=== PATIENT | female | born 1985 | race Asian ===

== ENCOUNTER 2021-12-15 05:35 | Inpatient (IN) ==
--- NOTE | 2021-12-06 10:34 | Anesthesiology Consultation ---
Date of Service December 06, 2021 Assessment & Plan (1) Encounter for pre-operative examination: COVID screening: Per assessment on 12/06: No known COVID-19 positive contacts or current COVID-19 related symptoms. Travel screen negative. Patient vaccinated. 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 History Surgery Operation Date: 12/15/21 07:30 Proposed Procedures p Section (Delivery of Baby Through Abdominal Incision) - Pilar Monaco MD, FACOG Height/Weight Height: 5 ft 6 in Weight: 86.183 kg Allergies Allergy/AdvReac Type Severity Reaction Status Date / Time No Known Allergies Allergy Verified 12/06/21 09:55 Medications Home Medications Medication Instructions Recorded Confirmed Last Taken folic acid 0.8 mg capsule 0.8 mg PO DAILY 12/06/21 12/06/21 Unknown vit no.95-ferrous 1 tab PO DAILY 12/06/21 12/06/21 Unknown fumarate 28 mg-folic acid 800 mcg tablet ( Multivitamins) Past Medical History Medical History Endometriosis History of anemia History of COVID-19 07/2021 > symptoms resolved History of uterine fibroid Past Family History Family History Mother Diabetes Hypertension Other No family history of adverse response to anesthesia Denies family history of Ovarian cancer Prostate cancer Bipolar disorder Breast cancer Lung cancer Cancer Past Surgical History Surgical History H/O myomectomy [place] teeth extracted Social History Smoking Status: Never smoker Hx Alcohol Use: No Hx Substance Use: No substance use type: does not use
--- NOTE | 2021-12-14 17:07 | History & Physical Report ---
Date of Service December 14, 2021 Assessment & Plan (1) 38 weeks gestation of : (2) History of myomectomy: Plan Given her history myomectomy, planned c/s and planned for 38thwk to avoid any chance of labor. Patient aware and agrees. Admit on 12/15/21 for planned c/s. Risks, alt and complications reviewed. Consent reviewed and signed. History of Present Illness Chief Complaint: planned c/s Primary Care Provider: [facility] 36yo [id number] for planned primary c/s for uterine myomectomies x multiple. Patient had hysteroscopic and laparoscopic myomectomies in [place], at least 6 removed laparoscopically. She states recommendation in [place] was c/s for future . She denies rom, vb. +FM. No ctx. PNC c/b 1. prior myomectomy x multiple PNL rh pos, ri, gbs neg OBH: g1 GYNH: nl paps Allergies Allergy/AdvReac Type Severity Reaction Status Date / Time No Known Allergies Allergy Verified 12/14/21 14:13 Home Medications Medication Instructions Recorded Confirmed Type folic acid 0.8 mg capsule 0.8 mg PO DAILY 12/06/21 12/14/21 History vit no.95-ferrous 1 tab PO DAILY 12/06/21 12/14/21 History fumarate 28 mg-folic acid 800 mcg tablet ( Multivitamins) Patient History Medical History Endometriosis History of anemia History of COVID-19 07/2021 > symptoms resolved History of uterine fibroid Surgical History H/O myomectomy [place] teeth extracted Family History Mother Diabetes Hypertension Other No family history of adverse response to anesthesia Denies family history of Ovarian cancer Prostate cancer Bipolar disorder Breast cancer Lung cancer Cancer Social History (Updated 05/17/21 @ 11:06 by Maria Luisa FLETCHER RN) Smoking Status: Never smoker Second Hand Exposure: No; Hx Alcohol Use: No Hx Substance Use: No Preferred Language: Pashto Communication Ability: Effective Hearing Ability: Normal Lecturer In Marketing Required: No Beliefs That Will Affect Care: None marital status: marital status details: Bc Valdes (38) [phone] Current Living Situation: Spouse Current Living Situation Comment: FOB and 1 cat ( FOB changing litter) current occupational status: 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
[2021-12-15] MEDS ORDERED: SODIUM CHLORIDE 0.9% 250 ML IV PRN (05:40)
[2021-12-15] MEDS ORDERED: ceFAZolin 2,000 MG in SYRINGE 0 ML IV SCH (06:00)
[2021-12-15] MEDS ORDERED: LACTATED RINGER'S 1,000 ML IV SCH ×2 (06:00→08:53)
[2021-12-15] MEDS ORDERED: CITRIC ACID/SODIUM CITRATE 15 ML UDC PO SCH (06:00)
[2021-12-15 06:26] LABS: Basophils # (auto) 0.02 K/uL (0-0.2); Basophils % (auto) 0.2 %; Eosinophils # (auto) 0.08 K/uL (0-0.50); Eosinophils % (auto) 0.9 %; Hematocrit (blood only) 34.2 % (34.1-44.9); Hemoglobin 11.3 g/dl (12.0-16.0); Immature Granulocytes # (auto) 0.17 K/uL (0.00-0.02); Immature Granulocytes % (auto) 1.9 %; Lymphocytes # (auto) 1.18 K/uL (1.2-3.4); Lymphocytes % (auto) 12.9 %; Mean Corpuscular Volume 90.7 fL (80.0-100.0); Mean Platelet Volume 11.4 fL (9.4-12.3); Monocytes # (auto) 0.57 K/uL (0.24-0.82); Monocytes % (auto) 6.3 %; Neutrophils % (auto) 77.8 %; Platelet Count 145 K/uL (130-400); RDW Coefficient of Variation 14.4 % (11.5-14.5); RDW Standard Deviation 46.8 fL (36.4-46.3); Red Blood Count 3.77 M/uL (3.93-5.22); White Blood Count 9.12 K/ul (4.8-10.8)
[2021-12-15] MEDS ORDERED: MoRPHine SULFATE PF 1 MG/ML 10 ML AMP/VIAL ONE (07:06)
[2021-12-15] MEDS ORDERED: LACTATED RINGER'S 500 ML IV PRN (07:26)
[2021-12-15] MEDS ORDERED: PROMETHAZINE HCL 12.5 MG in SODIUM CHLORIDE 0.9% 50 ML IV PRN (07:26)
[2021-12-15] MEDS ORDERED: ePHEDrine sulfate 50 MG/ML AMP IV PRN (07:26)
[2021-12-15] MEDS ORDERED: NALBUPHINE HCL INJ 10 MG/ML AMP IV PRN (07:26)
[2021-12-15] MEDS ORDERED: NALOXONE HCL 1 MG in SODIUM CHLORIDE 0.9% 1000ML 1,000 ML IV PRN (07:26)
[2021-12-15] MEDS ORDERED: NALOXONE HCL 0.4 MG/1 ML VIAL/CARP IV PRN (07:26)
[2021-12-15] MEDS ORDERED: ONDANSETRON INJ 2 MG/ML 2 ML VIAL IV PRN (07:26)
[2021-12-15] MEDS ORDERED: NALOXONE HCL 0.08 MG in SYRINGE 1.8 ML IV PRN (07:26)
[2021-12-15] MEDS ORDERED: MoRPHine SULFATE 2 MG/ML CARP IV PRN (07:26)
[2021-12-15] MEDS ORDERED: diphenhydrAMINE 50 MG/ML VIAL IV PRN (07:26)
[2021-12-15] MEDS ORDERED: KETOROLAC 30 MG/ML VIAL IV PRN (07:26)
[2021-12-15] MEDS ORDERED: MoRPHine SULFATE PF 1 MG/ML 10 ML AMP/VIAL INT SPINAL ONE (07:26)
--- NOTE | 2021-12-15 07:27 | History & Physical Bridge Note ---
Date of Service December 15, 2021 History & Physical Bridge Note I have examined the patient, reviewed the History & Physical and in the interval since the performance of the History & Physical I have noted the following changes of clinical significance: no changes noted
[2021-12-15] MEDS ORDERED: SODIUM CHLORIDE 0.9% 1000ML 1,000 ML IV SCH (07:30)
[2021-12-15] MEDS ORDERED: DC INTRASPINAL MORPHINE SCH (07:30)
[2021-12-15] MEDS ORDERED: NO NARCOTICS OR SEDATIVES SCH (07:30)
[2021-12-15] MEDS ORDERED: OXYTOCIN 10 UNITS/ML 10ML VIAL ONE ×3 (07:59)
[2021-12-15] MEDS ORDERED: PHENYLEPHRINE 100MCG/ML 5ML SYR ONE (07:59)
[2021-12-15] MEDS ORDERED: LIDOCAINE 2% 20 MG/ML 5 ML SYR IV ONE (07:59)
[2021-12-15] MEDS ORDERED: ePHEDrine sulfate 50 MG/ML SYR ONE (07:59)
[2021-12-15] MEDS ORDERED: PROPOFOL IV EMULSION 10 MG/ML 20 ML VIAL IV ONE (07:59)
--- NOTE | 2021-12-15 08:38 | Post Operative Brief Note ---
PG Immediate Post Op with CF Date of Surgery December 15, 2021 Pre & Post Diagnosis Operation Date: 12/15/21 07:30 Pre-Op Diagnosis: 38 weeks intrauterine prior multiple myemectomies Post-Op Diagnosis: same I identified the patient and participated in the time-out.: Yes Procedure Operation Date: 12/15/21 07:30 Actual Procedures p Primary Low Transverse Section in LD live female infant at 0801 - Pilar Monaco MD, FACOG Surgeon Pilar Monaco MD, FACOG Geological Specialist Nichole Estimated Blood Loss 500 Findings Consistent with Post-Op Diagnosis (viable female, apgars pending. uterus bulky and large, c/w fibroids. normal tubes and ovaries bilaterally) Fluids 2800 Specimens Specimen Description: placenta-hold cord blood Drains Kelly Catheter Anesthesia Type Spinal Complications none Disposition Accompanied Patient To Recovery: No Disposition: L&D
--- NOTE | 2021-12-15 08:42 | Operative Report ---
PG Post Operative Report Pre & Post Diagnosis Operation Date: 12/15/21 07:30 Pre-Op Diagnosis: 1. 38 weeks intrauterine 2. Prior multiple uterine myomectomies Post-Op Diagnosis: same I identified the patient and participated in the time-out.: Yes Procedure Operation Date: 12/15/21 07:30 Actual Procedures p Primary Low Transverse Section Surgeon Pilar Monaco MD, FACOG Speedboat Driver Nichole Estimated Blood Loss 500 Findings Consistent with Post-Op Diagnosis (viable female, apgars pending. uterus bulky and large, c/w fibroids. normal tubes and ovaries bilaterally, small band of filmy adhesion of tissue of anterior uterus on right to anterior abdominal wall. otherwise no adhesions) Fluids 2800 Specimens cord blood Drains pepper Anesthesia Type Spinal Complications none Disposition Accompanied Patient To Recovery: No Disposition: L&D Indications 36yo at 38wks with multiple laparoscopic myomectomies for planned primary c/s. Denies complaints. Prior surgery done in [place] and was told will need c/s delivery with pregnancies. Here for that now. Description of Procedure The patient was taken to the operating room and identified. After adequate anesthesia was obtained, she was placed in the supine position with a leftward tilt on the operating table and prepped and draped in the usual sterile fashion. A pepper catheter had already been placed. The knife was used to create a Pfannensteil skin incision that was carried down to the underlying layer of fascia. The fascia was nicked in the midline and this opening was extended laterally using Jennings scissors. Soniya clamps were placed on the superior and inferior aspect of the fascial incision tenting it upward and the underlying rectus muscles were dissected off the overlying fascia both sharply and bluntly using Jennings scissors. The rectus muscles were bluntly in the midline. The peritoneal cavity was bluntly entered into. This opening was stretched. The bladder blade was placed. The vesicouterine peritoneum was elevated and opened up into and the bladder flap was created digitally and bladder blade was replaced. Small filmy adhesion on right of uterus, transected with bovie. The knife was used to create a hysterotomy and this opening was stretched. The operators hand was placed through the hysterotomy and the bladder blade was removed. The head was elevated and flexed and with fundal pressure the head was delivered. The shoulders and body were rapidly delivered. The cord was clamped and cut and the 's mouth and nares were bulb suction. The infant was handed off to the awaiting pediatricians. Cord blood was obtained. The placenta was manually expressed. The uterus was exteriorized and cleared of all clots and debris. Dilute IV Pitocin was begun. The uterine tone was improving, the uterine size was bulky. The hysterotomy was closed in a running interlocking fashion using 0 Vicryl followed by a second imbricating layer of 0 Vicryl. The hysterotomy was not hemostatic at left angle and middle and figure of eight sutures of 0-vicyrl were placed for excellent hemostasis. The pelvis was suctioned of blood and fluid. The uterus was returned to the abdomen. The gutters were cleared of all clots and debris. The hysterotomy was reinspected and noted to be hemostatic. The fascia was then closed in running fashion using 0 Vicryl. The subcutaneous fat was copiously irrigated and reapproximated using 2-0 chromic. The skin was closed in a subcuticular fashion using 4-0 monocryl. At this point the procedure was terminated. The patient was transferred to the recovery room in stable condition. All sponge, lap and needle counts are correct x2. I attest to the content of the Intraoperative Record and any orders documented therein. Any exceptions are noted below. OB Procedure Charges 27530
[2021-12-15] MEDS ORDERED: MAGNESIUM HYDROXIDE SUSP 30 ML UDC PO PRN (08:53)
[2021-12-15] MEDS ORDERED: BENZOCAINE 20% AER SPR 82.5 GM CAN EXT PRN (08:53)
[2021-12-15] MEDS ORDERED: HYDROCORTISONE ACETATE 25 MG SUPP PR PRN (08:53)
[2021-12-15] MEDS ORDERED: DIPHTHERIA/TETANUS/PERTUSSIS 0.5 ML SYR/VIAL IM ONE (08:53)
[2021-12-15] MEDS ORDERED: SENNA 8.6 MG TAB PO PRN (08:53)
--- NOTE | 2021-12-15 12:00 | Anesthesiology Progress Note ---
Date of Service December 15, 2021 Anesthesia Post Procedure Vital Signs Vital Signs: Temp Pulse Resp BP Pulse Ox O2 Del Method 12/15/21 10:45 20 12/15/21 10:15 20 12/15/21 09:45 20 12/15/21 09:45 20 12/15/21 09:35 20 12/15/21 09:25 20 12/15/21 09:15 20 12/15/21 09:05 20 12/15/21 08:55 20 12/15/21 08:45 36.5 C 20 12/15/21 05:54 36.9 C 18 Room Air 12/15/21 11:53 102 H 94 12/15/21 11:48 103 H 94 12/15/21 11:33 93 H 94 12/15/21 11:28 96 H 95 12/15/21 11:23 92 H 96 12/15/21 11:18 87 96 12/15/21 11:13 88 95 12/15/21 11:08 95 H 96 12/15/21 11:03 96 H 96 12/15/21 10:58 93 H 96 12/15/21 10:53 101 H 96 12/15/21 10:48 96 H 97 12/15/21 10:45 90 102/67 12/15/21 10:43 97 H 97 12/15/21 10:38 91 H 97 12/15/21 10:33 89 97 12/15/21 10:28 93 H 98 12/15/21 10:23 93 H 98 12/15/21 10:18 95 H 98 12/15/21 10:15 85 119/67 12/15/21 10:13 87 97 12/15/21 10:08 93 H 98 12/15/21 10:03 92 H 98 12/15/21 09:58 95 H 98 12/15/21 09:53 99 H 97 12/15/21 09:48 89 98 12/15/21 09:43 94 H 97 12/15/21 09:44 93 H 119/74 12/15/21 09:38 85 97 12/15/21 09:34 103 H 120/71 12/15/21 09:33 101 H 98 12/15/21 09:28 106 H 99 12/15/21 09:24 110 H 120/69 12/15/21 09:23 108 H 97 12/15/21 09:18 110 H 98 12/15/21 09:14 113 H 121/68 12/15/21 09:13 105 H 98 12/15/21 09:08 112 H 98 12/15/21 09:04 108 H 112/57 L 12/15/21 09:03 103 H 98 12/15/21 08:58 103 H 99 12/15/21 08:54 97 H 111/51 L 12/15/21 08:53 103 H 96 12/15/21 08:48 88 97 12/15/21 08:43 90 96 12/15/21 08:44 85 117/58 L 12/15/21 05:50 36.9 C 89 18 120/77 Transfer of Care Handoff Completed per policy Notes Mental Status: alert / awake / arousable Patient Amnestic to Procedure: Yes Nausea / Vomiting: adequately controlled Pain: adequately controlled Airway Patency, RR, SpO2: stable & adequate BP & HR: stable & adequate Hydration State: stable & adequate Neuraxial Anesthesia: was administered and sensory block is resolving Anesthetic Complications: no major complications apparent
[2021-12-15] MEDS: OXYTOCIN 20 UNITS in LACTATED RINGER'S 1,000 ML IV SCH ×2 (12:29→20:52)
[2021-12-15] MEDS: SIMETHICONE 80 MG CHEW PO SCH ×3 (13:53→20:52)
[2021-12-15] MEDS: DOCUSATE SODIUM 100 MG CAP PO SCH (20:52)
[2021-12-16] MEDS ORDERED: diphenhydrAMINE 50 MG/ML VIAL IV PRN (01:53)
[2021-12-16] MEDS ORDERED: ZOLPIDEM TARTRATE 5 MG TAB PO PRN (01:53)
[2021-12-16] MEDS ORDERED: PROMETHAZINE HCL 25 MG in SODIUM CHLORIDE 0.9% 50 ML IV PRN (01:53)
[2021-12-16] MEDS ORDERED: ONDANSETRON INJ 2 MG/ML 2 ML VIAL IV PRN (01:53)
[2021-12-16] MEDS ORDERED: diphenhydrAMINE Capsule 25 MG CAP PO PRN (01:53)
[2021-12-16] MEDS: oxyCODONE/ACETAMINOPHEN 5mg/325mg TAB PO PRN ×5 (02:38→21:01)
[2021-12-16] MEDS: IBUPROFEN 600 MG TAB PO PRN ×5 (02:39→21:01)
--- NOTE | 2021-12-16 07:08 | Obstetrical Progress Note ---
Date of Service December 16, 2021 Assessment & Plan (1) care following delivery: (2) Leiomyoma of uterus affecting : Plan - Overall, feeling well and eating well today - Infant breast feeding going well without concern - Urinating and passing gas appropriately - Ambulating well in room - Pain controlled w/ Ibuprofen and Percocet - Hgb 12/15 11.3, Hgb 12/16 Pending - Routine PP care progressing well - Anticipate discharge at POD #3 Admission and Anticipated Discharge Date Admission Date: December 15, 2021 Supervising Physician Co-Signing Physician Notes Resident Physician Supervision Note: I was present with Dr. Anthony during the history and exam. I discussed the case with the resident and agree with the findings and plan as documented in the note. Any exceptions or clarifications are listed here: doing well day 1 postop. denies pain issues. voiding, eating. ff 2 down nt, nt calves. pod#1 hgb noted. routine care. breast/rhpos/ri. Documented By: Pilar Monaco MD, FACOG Subjective Today 12/16: Patient is a 36 y/o female who is POD #1 following delivery at 38w0d. Patient has a history of multiple myomectomies, thus, c/s was performed. - Ambulation - well throughout room - Voiding/Kelly - independent voids, no dysuria or pressure - Gas/Stool - passing gas, no bowel movement - Diet - regular, no nausea or emesis - Lochia - diminishing, moderate amount - Infant Feeding Type - breast feeding - Pain Level - 0/10, controlled with Ibuprofen & Percocet Review of Systems - Denies fever, chills, sweats - Denies shortness of breath, difficulty breathing, chest pain, palpitations, chest pressure. - Denies breast pain. - Denies dysuria. - Denies headache or changes in vision. Physical Exam Physical Exam: General: Alert, oriented. No acute distress. Cardiac: RRR, normal S1/S2, no murmurs/rubs/gallops. Respiratory: Non-labored, CTAB, no wheezes/rales/rhonchi. Symmetric chest rise. Abdomen: Soft, nontender, nondistended. Bowel sounds present. Uterus: Uterine fundus firm, mild TTP, palpable 2 cm below umbilicus. Dressing removed - incision clean and dry, no erythema or purulence, mild ecchymosis Lower Extremities: No lower extremity edema or swelling. No deep calf pain. Jesús's negative bilaterally. Results & Data ([facility]) Vital Signs (Past 12 Hours) Vital Signs Temp Pulse Resp BP Pulse Ox O2 Del Method 12/16/21 01:30 18 97 12/16/21 02:29 37.3 C 102 H 18 106/65 98 Room Air 12/16/21 00:30 16 97 12/15/21 23:45 16 97 12/15/21 23:37 37.2 C 108 H 18 112/67 94 Room Air 12/15/21 21:30 14 96 12/15/21 20:30 15 97 12/15/21 22:30 16 95 12/15/21 19:30 16 98 12/15/21 19:20 37.1 C 96 H 18 102/65 95 Room Air Resident Activity Tracking Resident Involvement: Resident Care Provided Care Provided: OB Delivery
[2021-12-16 07:31] LABS: Hematocrit (blood only) 30.2 % (34.1-44.9); Hemoglobin 10.2 g/dl (12.0-16.0); Mean Corpuscular Hemoglobin 30.3 pg (25.0-34.0); Mean Corpuscular Hgb Conc 33.8 g/dL (32.0-36.0); Mean Corpuscular Volume 89.6 fL (80.0-100.0); Mean Platelet Volume 11.7 fL (9.4-12.3); Platelet Count 147 K/uL (130-400); RDW Coefficient of Variation 14.6 % (11.5-14.5); RDW Standard Deviation 46.7 fL (36.4-46.3); Red Blood Count 3.37 M/uL (3.93-5.22); White Blood Count 10.63 K/ul (4.8-10.8)
[2021-12-16 08:06] LABS: Basophils # (auto) 0.02 K/uL (0-0.2); Basophils % (auto) 0.2 %; Eosinophils # (auto) 0.04 K/uL (0-0.50); Eosinophils % (auto) 0.4 %; Immature Granulocytes # (auto) 0.07 K/uL (0.00-0.02); Immature Granulocytes % (auto) 0.7 %; Lymphocytes # (auto) 0.84 K/uL (1.2-3.4); Lymphocytes % (auto) 7.9 %; Monocytes # (auto) 0.56 K/uL (0.24-0.82); Monocytes % (auto) 5.3 %; Neutrophils % (auto) 85.5 %; Polychromasia 1+
[2021-12-16] MEDS: DOCUSATE SODIUM 100 MG CAP PO SCH ×2 (08:32→20:29)
[2021-12-16] MEDS: FERROUS SULFATE 325 MG TAB PO SCH (08:32)
[2021-12-16] MEDS: SIMETHICONE 80 MG CHEW PO SCH ×4 (08:32→20:29)
[2021-12-16] MEDS: PRENATAL VITAMIN 1 TAB PO SCH (08:33)
[2021-12-16] MEDS ORDERED: bisacodyL 5 MG TABEC PO SCH (20:00)
[2021-12-17] MEDS: IBUPROFEN 600 MG TAB PO PRN ×5 (03:30→23:11)
[2021-12-17] MEDS: oxyCODONE/ACETAMINOPHEN 5mg/325mg TAB PO PRN ×5 (03:30→23:11)
--- NOTE | 2021-12-17 05:29 | Obstetrical Progress Note ---
Date of Service December 17, 2021 Assessment & Plan (1) care following delivery: (2) Leiomyoma of uterus affecting : Plan - Overall, feeling well and eating well today - Infant breast feeding going well without concern - Urinating and passing gas appropriately - Ambulating well in room - Pain controlled w/ Ibuprofen and Percocet - Hgb 12/15 11.3, Hgb 12/16 10.2, 12/17 10.2 - Routine PP care progressing well - Anticipate discharge at POD #3, discussion about d/c today - Recommend follow up outpatient in 6 weeks Admission and Anticipated Discharge Date Admission Date: December 15, 2021 Supervising Physician Co-Signing Physician Notes Resident Physician Supervision Note: I was present with Dr. Anthony during the history and exam. I discussed the case with the resident and agree with the findings and plan as documented in the note. Any exceptions or clarifications are listed here: POD#2 Documented By: Hina Thompson, DO Subjective Today 12/17: Patient is a 36 y/o female who is POD #1 following delivery at 38w0d. Patient has a history of multiple myomectomies, thus, c/s was performed. Wishes to stay until tomorrow. - Ambulation - well throughout room - Voiding/Kelly - independent voids, no dysuria or pressure - Gas/Stool - passing gas, no bowel movement - Diet - regular, no nausea or emesis - Lochia - diminishing, moderate amount - Feeding Type - breast feeding - Pain Level - 2/10, controlled with Ibuprofen & Percocet Review of Systems - Denies fever, chills, sweats - Denies shortness of breath, difficulty breathing, chest pain, palpitations, chest pressure. - Denies breast pain. - Denies dysuria. - Denies headache or changes in vision. Physical Exam Physical Exam: General: Alert, oriented. No acute distress. Cardiac: RRR, normal S1/S2, split S2, no murmurs/rubs/gallops. Respiratory: Non-labored, CTAB, no wheezes/rales/rhonchi. Symmetric chest rise. Abdomen: Soft, nontender, nondistended. Bowel sounds present. Uterus: Uterine fundus firm, mild TTP, palpable 2 cm below umbilicus. Incision clean and dry, no erythema or purulence, mild ecchymosis at left aspect of incision. Lower Extremities: No lower extremity edema or swelling. No deep calf pain. Jesús's negative bilaterally. Results & Data ([facility]) Vital Signs (Past 12 Hours) Vital Signs Temp Pulse Resp BP Pulse Ox O2 Del Method 12/17/21 00:00 36.7 C 92 H 16 108/69 95 Room Air 12/16/21 19:40 Room Air 12/16/21 19:40 36.7 C 101 H 16 107/67 96 Room Air Resident Activity Tracking Resident Involvement: Resident Care Provided Care Provided: OB Delivery
[2021-12-17 06:46] LABS: Hematocrit (blood only) 30.8 % (34.1-44.9); Hemoglobin 10.2 g/dl (12.0-16.0)
[2021-12-17] MEDS ORDERED: bisacodyL 10 MG SUPP PR PRN (08:39)
[2021-12-17] MEDS: FERROUS SULFATE 325 MG TAB PO SCH (09:10)
[2021-12-17] MEDS: DOCUSATE SODIUM 100 MG CAP PO SCH ×2 (09:11→20:19)
[2021-12-17] MEDS: SIMETHICONE 80 MG CHEW PO SCH ×4 (09:11→20:19)
[2021-12-17] MEDS: PRENATAL VITAMIN 1 TAB PO SCH (09:12)
[2021-12-18] MEDS: IBUPROFEN 600 MG TAB PO PRN ×2 (04:02→08:51)
[2021-12-18] MEDS: oxyCODONE/ACETAMINOPHEN 5mg/325mg TAB PO PRN (04:03)
--- NOTE | 2021-12-18 08:02 | Obstetrical Progress Note ---
Date of Service December 18, 2021 Assessment & Plan (1) care following delivery: Plan 36-year-old Day 3 status post primary Caesarean section doing well. stable for discharge. Subjective Ambulation: ambulating normally Voiding: no voiding problems Passing Gas:: Yes Diet Tolerance:: regular diet Lochia:: Moderate Feeding Type:: breast feeding Physical Exam Constitutional WD/WN, vitals as above Respiratory normal respiratory effort; no respiratory distress and no labored breathing Gastrointestinal (Abdomen) Inspection/Auscultation: abdomen normal to inspection; abdomen not distended Percussion/Palpation: abdomen soft; abdomen nontender, no guarding and abdomen not rigid Incision clean, dry and intact Genitourinary OB Exam Abdomen: + fundal height Fundus: + firm and + relation to umbilicus (Below); not tender or not boggy Results & Data ([facility]) Vital Signs (Past 12 Hours) Vital Signs Temp Pulse Resp BP Pulse Ox O2 Del Method 12/17/21 23:10 36.7 C 87 18 106/72 97 Room Air 12/17/21 20:15 Room Air 12/17/21 20:15 36.8 C 90 18 119/74 95 Room Air
[2021-12-18] MEDS ORDERED: HYDROCORTISONE 1% CRM 30 GM TUBE EXT PRN (08:38)
[2021-12-18] MEDS: SIMETHICONE 80 MG CHEW PO SCH (08:50)
[2021-12-18] MEDS: DOCUSATE SODIUM 100 MG CAP PO SCH (08:51)
[2021-12-18] MEDS: FERROUS SULFATE 325 MG TAB PO SCH (08:51)
[2021-12-18] MEDS: PRENATAL VITAMIN 1 TAB PO SCH (08:51)
== END 2021-12-18 11:10 | disposition home or self-care (01) | DRG 788 ==
LOC: 4S1 05:35 → EDSTATUS 07:30 → 4E2 14:33